=== PATIENT | female | born 1945 | race Caucasian/White ===

== ENCOUNTER 2017-01-28 11:04 | Outpatient (CLI) | payer MEDICARE ==
[2017-01-28 12:20] LABS: ALT (SGPT) 24 U/L (8-55); AST (SGOT) 22 U/L (5-34); Albumin 4.1 g/dL (3.4-4.8); Alkaline Phosphatase 81 U/L (40-150); Bilirubin, Direct 0.3 mg/dL (0.1-0.3); Bilirubin, Total 0.7 mg/dL (0.2-1.2); Cholesterol 157 mg/dl (< 200 Desired); HDL Cholesterol 78 mg/dL (>60 Neg Risk); LDL Cholesterol, Calculated 66 mg/dL; Protein, Total 7.3 g/dL (6.0-8.3); Triglycerides 67 mg/dL (Less than 150)
== END 2017-01-28 11:05 | disposition home or self-care (01) ==
LOC: MADLAB 11:04
PROVIDERS: ATTEND Internal Medicine
DX: E78.5 Hyperlipidemia, unspecified (principal); I10 Essential (primary) hypertension; R00.2 Palpitations
CPT/HCPCS: 36415; 80061; 80076; 84443